=== PATIENT | female | born 1980 | race African-American/Black ===

== ENCOUNTER 2022-03-04 10:07 | Emergency (ER) | payer OTHER ==
[2022-03-04] MEDS ORDERED: Acetaminophen 500 MG TAB ONE (10:33)
[2022-03-04] MEDS ORDERED: Ondansetron ODT 4 MG TAB ONE (11:36)
[2022-03-04] MEDS ORDERED: Dexamethasone 10 MG/ML VIAL ONE (11:36)
== END 2022-03-04 11:38 | disposition home or self-care (01) ==
LOC: CSHERS 10:07
DX: U07.1 COVID-19 (principal); F17.210 Nicotine dependence, cigarettes, uncomplicated
CPT/HCPCS: 87081; 87430; 87804; 99283; J1100; Q0162; U0003; U0005

== ENCOUNTER 2022-05-18 14:33 | Emergency (ER) | payer OTHER ==
[2022-05-18 16:37] LABS: Hemoglobin 12.5 g/dL (12.0-15.5); Mean Corpuscular HGB CONC 33.8 g/dL (32.0-36.0); Mean Corpuscular Hemoglobin 33.3 pg (27.0-33.0); Mean Corpuscular Volume 98.7 fl (81.6-98.3); Mean Platelet Volume 9.9 fl (7.4-10.4); Platelet Count 243 10x3/uL (150-450); RBC Distribution Width 13.1 % (11.5-14.5); Red Blood Cell (RBC) Count 3.75 10x6/uL (3.90-5.03)
[2022-05-18 16:53] LABS: ALT (SGPT) 22 U/L (8-55); AST (SGOT) 32 U/L (5-34); Albumin 4.3 g/dL (3.5-5.0); Alkaline Phosphatase 71 U/L (40-110); Anion Gap 15 mmol/L (10-20); BUN (Urea Nitrogen) 13 mg/dL (7.0-18.7); Bilirubin, Total 0.2 mg/dL (0.2-1.2); Calc. Creatinine Clearance 0 mL/min (70-130); Calcium 10.2 mg/dL (7.8-10.44); Carbon Dioxide 20 mmol/L (22-29); Chloride 109 mmol/L (98-107); Estimated GFR 97; Globulin 3.5 g/dL (2.4-3.5); Glucose 94 mg/dL (70-105); Lipase 68 U/L (8-78); Potassium 4.5 mmol/L (3.5-5.1); Protein, Total 7.8 g/dL (6.0-8.3); Sodium 139 mmol/L (136-145)
[2022-05-18 17:29] LABS: Bilirubin Neg (Negative); Blood, Urine Negative (Negative); Clarity Cloudy (Clear); Glucose, Urine (Dipstick) Normal (Negative); Ketone, Urine Negative (Negative); Leukocyte Negative (Negative); Nitrite Negative (Negative); Protein, Urine (Dipstick) Negative (Neg-Trace); Specific Gravity, Urine 1.015 (1.005-1.030); Urobilinogen Normal mg/dL (Less than 2)
[2022-05-18 17:51] LABS: Band 1 % (5-11); Monocytes 9 % (0-10)
[2022-05-18 17:55] LABS: Eosinophils 3 % (0-10); Lymphocytes 20 % (21-51); Reactive Lymphocytes 14 % (0-10)
[2022-05-18 17:58] LABS: Neutrophil 53 % (42-75); Reflex for Review?? YES
[2022-05-18 17:59] LABS: Platelet Morphology Comment Appears Adequate; Toxic Granulation SLIGHT
[2022-05-18 18:00] LABS: MDiff Complete? YES; RBC Morphology Normal
== END 2022-05-18 18:53 | disposition home or self-care (01) ==
LOC: CSHERS 14:33
DX: R07.9 Chest pain, unspecified (principal); K80.20 Calculus of gallbladder without cholecystitis without obstruction; F17.210 Nicotine dependence, cigarettes, uncomplicated
CPT/HCPCS: 71045; 76705; 80053; 81003; 83690; 84484; 85025; 85060; 85379; 87086; 93005; 94760

== ENCOUNTER 2022-06-19 10:02 | Emergency (ER) | payer OTHER | END 2022-06-19 11:27 | disposition home or self-care (01) | LOC: CSHERS 10:02 | DX: J45.901 Unspecified asthma with (acute) exacerbation (principal); F17.210 Nicotine dependence, cigarettes, uncomplicated | CPT/HCPCS: 71045 ==

== ENCOUNTER 2025-05-10 14:34 | Emergency (ER) | payer OTHER | END 2025-05-10 16:50 | disposition home or self-care (01) | LOC: CSHERS 14:34 | DX: R51.9 Headache, unspecified (principal); M25.532 Pain in left wrist; F17.210 Nicotine dependence, cigarettes, uncomplicated ==